=== PATIENT | male | born 2000 | race Caucasian/White ===

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

== ENCOUNTER 2022-02-07 11:10 | Emergency (ER) | payer OTHER ==
[~2022-02-07] VITALS: Ht 188 cm; Wt 84.9 kg
[~2022-02-07 11:10] MED LIST changes: +PANT40EC PO
--- NOTE | 2022-02-07 11:19 | NUR ---
PT TO [facility]
[2022-02-07 11:46] VITALS: BP 156/79
[2022-02-07] MEDS ORDERED: IBUP-2213 PO (12:54)
--- NOTE | 2022-02-07 12:58 | NUR ---
RT ANKLE PAIN S/P MEC FALL -LOC/KO, PAIN 12/27
[2022-02-07] MEDS ORDERED: IBUPROFEN 800 MG TAB PO ONE (13:00)
[2022-02-07 13:20] VITALS: BP 132/72
== END 2022-02-07 13:20 | disposition home or self-care (01) ==
LOC: MED 11:10
DX: S93.401A Sprain of unspecified ligament of right ankle, initial encounter (principal); R03.0 Elevated blood-pressure reading, without diagnosis of hypertension; Z79.899 Other long term (current) drug therapy; X58.XXXA Exposure to other specified factors, initial encounter; Y93.01 Activity, walking, marching and hiking; Y92.89 Other specified places as the place of occurrence of the external cause; Y99.8 Other external cause status
CPT/HCPCS: 73610; 99283

== ENCOUNTER 2022-07-02 08:00 | Emergency (ER) | payer OTHER ==
[~2022-07-02] VITALS: Ht 188 cm; Wt 142.9 kg
[~2022-07-02 08:00] MED LIST changes: +IBUP-2213 PO
[2022-07-02 08:09] VITALS: BP 188/97
[2022-07-02] MEDS ORDERED: ACETAMINOPHEN EXTRA STRENGTH 500 MG TAB ONE (08:17)
[2022-07-02] MEDS ORDERED: ACETAMINOPHEN EXTRA STRENGTH 500 MG TAB PO ONE (08:20)
--- NOTE | 2022-07-02 08:22 | NUR ---
PATIENT AMBULATED TO BED 8.
--- NOTE | 2022-07-02 08:31 | NUR ---
DR. BHATT EVALUATING PATIENT AT BEDSIDE.
[2022-07-02] MEDS ORDERED: diphenhydrAMINE 50 MG/ML VIAL IVP ONE (08:35)
[2022-07-02] MEDS ORDERED: KETOROLAC 30 MG/ML VIAL IVP ONE (08:35)
[2022-07-02] MEDS ORDERED: NACL 0.9% 1,000 ML IV ONE (08:35)
--- NOTE | 2022-07-02 09:01 | NUR ---
22 y/o male bib self, c/o difficulty breathing, cough, sore throat, low back pain for 2 days. pt states he tested negative for covid yesterday. pt has active fever 101 oral temp in triage. denies nausea, vomiting, diarrhea. skin is pink/warm/dry. a&o x4 with even and steady gait. heart rate even and regular rate 90. pt denies dysuria, hematuria, urinary frequency or retention, or anyone sick in the household with the same symptoms. pt states pain is 9/10 at this time. patient positioned for comfort. hob elevated. bed down. ermd made aware of pt. pmh: denies allergy: avocado med: denies
--- NOTE | 2022-07-02 09:17 | NUR ---
IV STARTED, BLOODWORK OBTAINED. GILBERT SWABBED, HANDED ALL SPECIMEN TO VIDEO CONTROL ENGINEER AT BEDSIDE.
[2022-07-02 09:35] LABS: BASOPHILS % (AUTO) 0.3 % (0.0-2.0); EOSINOPHILS % (AUTO) 0.1 % (0.0-4.0); HEMATOCRIT 42.8 % (36-52); HEMOGLOBIN 14.4 g/dL (12.0-18.0); LYMPHOCYTES # (AUTO) 0.3 K/uL (2.0-11.5); MEAN CORPUSCULAR HEMOGLOBIN 30 pg (27-31); MEAN CORPUSCULAR HGB CONC 34 g/dL (33-37); MEAN CORPUSCULAR VOLUME 88.2 fL (80-94); MONOCYTES # (AUTO) 0.8 K/uL (0.8-1.0); MONOCYTES % (AUTO) 11.6 % (1.7-9.3); NEUTROPHILS # (AUTO) 5.4 K/uL (1.8-7.7); PLATELET COUNT (AUTO) 182 K/uL (140-450); RED BLOOD CELL COUNT(AUTO) 4.85 MIL/uL (4.20-6.10); RED CELL DISTRIBUTION WIDTH 13.7 % (11.6-13.7); WHITE BLOOD COUNT (AUTO) 6.5 K/uL (4.8-10.8)
[2022-07-02 09:49] LABS: ALBUMIN 3.7 g/dL (3.4-5.0); CARBON DIOXIDE 26.5 mmol/L (21-32); CREATININE 0.9 mg/dL (0.6-1.3); POTASSIUM 3.5 mmol/L (3.5-5.1); TOTAL BILIRUBIN 0.3 mg/dL (0.0-1.0)
[2022-07-02] MEDS ORDERED: ALBU0.0912 IH (09:56)
[2022-07-02] MEDS ORDERED: IBUP-2213 PO (09:56)
[2022-07-02] MEDS ORDERED: TAM75 PO (09:56)
[2022-07-02] MEDS ORDERED: ACET-10509 PO (09:56)
[2022-07-02 10:40] VITALS: BP 147/75
--- NOTE | 2022-07-02 10:41 | NUR ---
Patient discharged with v/s stable. Written and verbal after care instructions given and explained. Patient alert, oriented and verbalized understanding of instructions. Ambulatory with steady gait. All questions addressed prior to discharge. ID band removed. Patient advised to follow up with PMD. Rx of acetaminophen, tamiflu, albuterol, ibuprofen (sent) given. Patient educated on indication of medication including possible reaction and side effects. Opportunity to ask questions provided and answered. ermd made aware of o2 status from 90-96%, okay to dx per chantel montiel.
--- NOTE | 2022-07-02 10:42 | NUR ---
The patient's care was reviewed and supervised by Rosa Hung, RN, RN.
== END 2022-07-02 10:40 | disposition home or self-care (01) ==
LOC: MED 08:00
DX: J11.1 Influenza due to unidentified influenza virus with other respiratory manifestations (principal); Z20.822 Contact with and (suspected) exposure to COVID-19
CPT/HCPCS: 36415; 80053; 85025; 87426; 87804; 96361; 96374; 96375; 99284; J1200; J1885; J7030

== ENCOUNTER 2022-08-05 20:38 | Emergency (ER) | payer OTHER ==
[~2022-08-05] VITALS: Ht 188 cm; Wt 137.0 kg
[~2022-08-05 20:38] MED LIST changes: +ACET-10509 PO; +ALBU0.0912 IH; +TAM75 PO
[2022-08-05 20:40] VITALS: BP 140/80
--- NOTE | 2022-08-05 20:40 | NUR ---
to bed ambulatory
[2022-08-05 21:01] VITALS: BP 140/80
--- NOTE | 2022-08-05 21:11 | NUR ---
pt is here for ear pain 2-3/10 and discomfort. alert and oriented x 4. follow commands. ambuatory, room air. bedlow and waiting t be seen by
[2022-08-05] MEDS ORDERED: IBUPROFEN 600 MG TAB PO ONE (21:30)
[2022-08-05] MEDS ORDERED: AMOXICILLIN 500 MG CAP PO ONE (22:55)
[2022-08-05] MEDS ORDERED: MUC600 PO (22:58)
[2022-08-05] MEDS ORDERED: AMOX500C25 PO (22:58)
[2022-08-05] MEDS ORDERED: PROM473S4 PO (22:58)
[2022-08-05] MEDS ORDERED: SUD30 PO (22:58)
--- NOTE | 2022-08-05 23:08 | NUR ---
Patient discharged with v/s stable. Written and verbal after care instructions given and explained. Patient verbalized understanding. Ambulatory with steady gait. All questions addressed prior to discharge. Advised to follow up with PMD.
== END 2022-08-05 23:09 | disposition home or self-care (01) ==
LOC: MED 20:38
DX: J06.9 Acute upper respiratory infection, unspecified (principal); Z20.822 Contact with and (suspected) exposure to COVID-19; H66.91 Otitis media, unspecified, right ear; R03.0 Elevated blood-pressure reading, without diagnosis of hypertension
CPT/HCPCS: 71045; 87426; 87804; 99284; Q0092